=== PATIENT | female | born 1995 | race Caucasian/White ===

== ENCOUNTER 2020-04-20 12:35 | Emergency (ER) | payer OTHER, SELFPAY ==
[2020-04-20] VITALS (9 sets, daily range): BP systolic 117–134; BP diastolic 76–87; PULSE 85–109; RESP 12–20; TEMP 36.8; O2SAT 98–100
--- NOTE | 2020-04-20 13:43 | ECG_ITS ---
Measurements Intervals [place] Rate: 89 P: 73 GA: 153 QRS: 12 QRSD: 79 T: 25 QT: 350 QTc: 426 Interpretive Statements SINUS RHYTHM WITH SINUS ARRHYTHMIA NORMAL ECG Electronically Signed On 04-20-2020 15:09:52 [employer] by Greg Puente D.O.
--- NOTE | 2020-04-20 13:43 | ED.GENADULT ---
HPI - General Adult General Chief complaint: Unspecified Stated complaint: hypertenision, weakness Time Seen by Provider: 04/20/20 13:32 History of Present Illness HPI narrative: Healthy 25 yo female presents to the ED for weakness. She was working on the floors upstairs when she suddenly began to feel light headed and weak. This was associated with a feeling of heaviness in her chest and her entire body. She then felt her heart racing. She checked her blood pressure and found it to be above her baseline. She does report being under extreme stress recently. She is feeling better now. Related Data Allergies Allergy/AdvReac Type Severity Reaction Status Date / Time clindamycin Allergy Mild Rash Verified 04/20/20 13:03 Review of Systems Review of Systems: All systems reviewed & are unremarkable except as noted in HPI and below Constitutional: Constitutional: Denies body ache(s), Denies fever(s), Denies headache(s), Reports lethargy and Reports weakness Eyes: Eyes: Reports no additional eye complaints ENT: Reports system reviewed and no additional complaints, except as documented Cardiovascular: Cardiovascular: Denies chest pain Respiratory: Respiratory: Denies dyspnea Gastrointestinal: Gastrointestinal: Denies diarrhea and Denies vomiting Genitourinary: Genitourinary: Denies dysuria Musculoskeletal: Musculoskeletal: Denies myalgias Neurologic: Denies confusion, Reports dizziness, Denies syncope and Denies focal weakness Psychiatric: Psychiatric: Reports anxiety PMFSH Past Medical History Medical History Anemia Anxiety Sexually transmitted disease Family History Family History Grandparent Ovarian cancer Thyroid disease COPD (chronic obstructive pulmonary disease) Mother Hyperlipidemia Anxiety Social History Social History Smoking status: Never smoker Second hand tobacco smoke exposure: No Alcohol intake: current Exam Const: General: healthy appearing, no acute distress and alert Nutritional Appearance: well nourished Orientation/consciousness: patient oriented x3 HENMT: Head: normal to inspection Ears: external ears normal and TM's normal bilaterally Eyes: Pupils: Equal, round and reactive pupils present EOM: EOMs intact bilaterally Neck: Neck: normal visual inspection and no lymphadenopathy Chest: Chest palpation & inspection: no tenderness Resp: Effort & Inspection: normal respiratory effort Auscultation: clear to auscultation bilaterally, no rales, no rhonchi and no wheezes Cardio: Jugular venous distension: no JVD Rate: regular rate Rhythm: regular rhythm Heart sounds: no murmurs GI: Inspection: non-distended GI Palp: Yes Soft to palpation and No Tenderness to palpation present (GI) Skin: General skin exam: normal color Neuro: General: patient oriented x3 and moves all extremities Cranial nerves: Yes CN's II-XII intact bilaterally and No Nystagmus present Speech: normal speech Gait exam (Neuro): Normal gait present Extrem: General: no edema Psych: Appearance: well kempt Affect: normal affect Course Vital Signs Vital signs: Vital Signs Temperature 36.8 C 04/20/20 12:55 Pulse Rate 109 H 04/20/20 12:55 Respiratory Rate 20 04/20/20 12:55 Blood Pressure 134/87 04/20/20 12:55 Pulse Oximetry 98 04/20/20 12:55 Temperature 36.8 C 04/20/20 12:55 Pulse Rate 86 04/20/20 14:41 Respiratory Rate 15 04/20/20 14:41 Blood Pressure 120/76 04/20/20 14:41 Pulse Oximetry 100 04/20/20 14:41 Medical Decision Making MDM Narrative Medical decision making narrative: History clearly suggests anxiety. Symptoms resolved. EKG normal. Aside from initial mild tachycardia vitals normal. No labs or imaging indicated. Medical Records Medical records reviewed: Yes I reviewed the patient's
== END 2020-04-20 14:45 | disposition home or self-care (01) ==
PROVIDERS: Emergency Provider Emergency Medicine; PCP Family Medicine
DX: F41.9 Anxiety disorder, unspecified (principal); Z86.2 Personal history of diseases of the blood and blood-forming organs and certain disorders involving the immune mechanism
CPT/HCPCS: 93005; 99283